=== PATIENT | male | born 1990 | race Caucasian/White ===

== ENCOUNTER 2017-04-14 08:49 | Emergency (ER) | payer MEDICAID ==
[~2017-04-14] VITALS: Ht 185.4 cm; Wt 91.5 kg
[~2017-04-14 08:49] MED LIST: ALB0.5UD IH; ALBU18HF2 IH; FLO44IN; FLUT16SP9; LORA10TA7 PO; PRED50TA PO
[2017-04-14] MEDS ORDERED: ipratropium/albuterol 3ml nebule NEB ONE (09:10)
[2017-04-14] MEDS ORDERED: ALB0.5UD IH (09:45)
[2017-04-14 09:54] VITALS: BP 124/72
== END 2017-04-14 09:56 | disposition home or self-care (01) ==
LOC: ER 08:49
DX: Z76.0 Encounter for issue of repeat prescription (principal); J45.901 Unspecified asthma with (acute) exacerbation; F12.10 Cannabis abuse, uncomplicated; Z79.899 Other long term (current) drug therapy
CPT/HCPCS: 94640; 94760; 99283

== ENCOUNTER 2021-12-22 23:01 | Emergency (ER) | payer OTHER, BC ==
[~2021-12-22] VITALS: Ht 185.4 cm; Wt 100.0 kg
[2021-12-22] MEDS ORDERED: ipratropium/albuterol 3ml nebule NEB ONE (23:45)
[2021-12-22] MEDS ORDERED: predniSONE 20 mg tablet PO ONE (23:45)
[2021-12-22 23:46] LABS: BASOPHILS # (AUTO) 0.1 X10'3 (0-0.2); BASOPHILS % (AUTO) 0.6 % (0-1); EOSINOPHILS # (AUTO) 0.5 X10'3 (0-0.9); HEMATOCRIT 44.3 % (42.0-52.0); HEMOGLOBIN 15.2 g/dl (14.0-17.9); LYMPHOCYTES # (AUTO) 3.5 X10'3 (1.1-4.8); LYMPHOCYTES % (AUTO) 28.6 % (21-51); MEAN CORPUSCULAR HEMOGLOBIN 29.3 PG (27.0-31.0); MEAN CORPUSCULAR HGB CONC 34.2 g/dL (33.0-36.5); MEAN CORPUSCULAR VOLUME 85.7 FL (78-98); MEAN PLATELET VOLUME 7.3 FL (7.4-10.4); MONOCYTES % (AUTO) 8.3 % (2-12); NEUTROPHILS # (AUTO) 7.1 X10'3 (1.8-7.7); NEUTROPHILS % (AUTO) 58.5 % (42-75); PLATELET COUNT 266 X10'3 (140-440); RED BLOOD COUNT 5.17 X10'6 (4.70-6.10); RED CELL DISTRIBUTION WIDTH 12.5 % (11.5-14.5); WHITE BLOOD COUNT 12.1 X10'3 (4.5-11.0)
[2021-12-22 23:59] LABS: ALANINE AMINOTRANSFERASE 37 U/L (12-78); ALBUMIN 3.9 G/DL (3.4-5.0); ALBUMIN/GLOBULIN RATIO 1.2 (1.1-1.5); ALKALINE PHOSPHATASE 63 IU/L (46-116); ANION GAP 10 (8-16); ASPARTATE AMINO TRANSFERASE 16 U/L (10-37); BILIRUBIN,TOTAL 0.2 MG/DL (0.1-1.0); BLOOD UREA NITROGEN 16 MG/DL (7-18); BUN/CREATININE RATIO 17.6 (5.4-32.0); CALCIUM 8.9 MG/DL (8.5-10.1); CHLORIDE 107 MMOL/L (99-107); CREATININE 0.91 MG/DL (0.60-1.10); GLUCOSE 141 MG/DL (70-104); POTASSIUM 3.5 MMOL/L (3.5-5.1); SODIUM 140 MMOL/L (135-145); TOTAL CARBON DIOXIDE 22.8 MMOL/L (24-32); TOTAL PROTEIN 7.2 G/DL (6.4-8.2); eGFR > 90 ML/MIN
[2021-12-23 00:04] VITALS: BP 134/87
[2021-12-23] MEDS ORDERED: PRED20TA PO (01:40)
== END 2021-12-23 02:12 | disposition home or self-care (01) ==
LOC: ER 23:02
DX: J45.909 Unspecified asthma, uncomplicated (principal); Z79.899 Other long term (current) drug therapy
CPT/HCPCS: 36415; 80053; 83880; 84484; 85025; 93005; 94640; 99284; J7512

== ENCOUNTER 2025-01-22 00:27 | Emergency (ER) | payer OTHER, BC ==
[~2025-01-22] VITALS: Ht 185.4 cm; Wt 120.0 kg
[2025-01-22] MEDS ORDERED: ALBU18HF2 INH (00:43)
[2025-01-22] MEDS ORDERED: PRED10TA23 PO (00:43)
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
--- NOTE | 2025-01-22 01:01 | RADIOLOGY REPORT ---
CHEST RADIOGRAPH Indication: sob Technique: Single frontal view of the chest was obtained COMPARISON: None FINDINGS: Lines and Tubes: None Lungs: Clear Pleura: No effusion. No pneumothorax. Cardiomediastinal contours: Unremarkable Bones: Unremarkable IMPRESSION: 1. No acute disease.
[2025-01-22] MEDS: albuterol 2.5 MG/3 ML nebule NEB ONE (01:29)
[2025-01-22 01:30] VITALS: PULSE 86; RESP 18; O2SAT 96
[2025-01-22 01:46] VITALS: PULSE 72; RESP 18; O2SAT 99
[2025-01-22 02:14] VITALS: BP 134/79; PULSE 84; RESP 17; TEMP 98.6; O2SAT 94
== END 2025-01-22 02:23 | disposition home or self-care (01) ==
LOC: ER 00:27
DX: J45.901 Unspecified asthma with (acute) exacerbation (principal); F12.90 Cannabis use, unspecified, uncomplicated; Z79.899 Other long term (current) drug therapy
CPT/HCPCS: 71045; 94640; 99283; J7512

== ENCOUNTER 2025-01-26 00:48 | Emergency (ER) | payer BC, OTHER ==
[~2025-01-26] VITALS: Ht 185.4 cm; Wt 125.0 kg
[~2025-01-26 00:48] MED LIST changes: +ALBU18HF2 INH; +PRED10TA23 PO
[2025-01-26 00:51] VITALS: TEMP 97.6
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
[2025-01-26] MEDS ORDERED: PRED20TA PO (02:04)
[2025-01-26] MEDS ORDERED: ALB0.5UD IH (02:06)
[2025-01-26] MEDS: albuterol 2.5 MG/3 ML nebule CONTNEB PRN (02:14)
[2025-01-26] MEDS: ipratropium/albuterol 3ml nebule NEB ONE (02:14)
[2025-01-26 02:19] VITALS: PULSE 85; RESP 16; O2SAT 96
[2025-01-26 03:15] VITALS: PULSE 96; RESP 17; O2SAT 96
[2025-01-26 03:26] VITALS: BP 132/98; PULSE 84; RESP 16; O2SAT 99
== END 2025-01-26 03:31 | disposition home or self-care (01) ==
LOC: ER 00:49
DX: J45.901 Unspecified asthma with (acute) exacerbation (principal); F12.90 Cannabis use, unspecified, uncomplicated; Z76.0 Encounter for issue of repeat prescription; Z59.01 Sheltered homelessness; Z79.899 Other long term (current) drug therapy
CPT/HCPCS: 94644; 99285; J7512; 94640; 94760; A7015